=== PATIENT | female | born 1995 | race Two or more races ===

== ENCOUNTER 2024-10-05 18:58 | Emergency (ER) | payer BC, MEDICAID, SELFPAY ==
[2024-10-05 18:59] VITALS: BMI 35.7
[2024-10-05 19:52] VITALS: BP 130/83; PULSE 110; RESP 16; TEMP 37.4; O2SAT 100
--- NOTE | 2024-10-05 20:00 | PD.EDRME ---
Rapid Medical Screening Exam [facility] Arrival date/time: 10/05/24 18:58 29F with no significant PMH presents to ED with several days of gen ab pain/cramping, non-bloody diarrhea, and body aches. Chief Complaint: Flu Like Symptoms Vital signs: Vital Signs Temperature 99.3 F 10/05/24 19:52 Pulse Rate 110 H 10/05/24 19:52 Respiratory Rate 16 10/05/24 19:52 Blood Pressure 130/83 10/05/24 19:52 Pulse Oximetry (%) 100 10/05/24 19:52 Oxygen Delivery Method Room Air 10/05/24 19:52
[2024-10-05 20:34] LABS: Collection Type, Urine Clean Catch
[2024-10-05 20:44] LABS: HCG Qualitative,Urine Negative
[2024-10-05 20:46] LABS: Bacteria,Urine Rare; Bilirubin,Urine Negative (Negative); Blood,Urine Negative (Negative); Clarity,Urine Clear (Clear/Hazy); Color,Urine Colorless (Lt Yel-Yel); Glucose, Urine Negative (Negative); Ketones,Urine Negative (Negative); Leukocyte Esterase,Urine Positive (Negative); Nitrite,Urine Negative (Negative); PH,Urine 6.5 (5.0-7.0); Protein,Urine Negative (Neg - Trace); RBC,Urine 1 /hpf (0-3); Specific Gravity,Urine 1.007 (1.001-1.035); Squamous Epithelial Cell,Urine 2 /hpf (0-5); Urobilinogen,Urine Negative mg/dL (0.0-1.0); WBC,Urine 3 /hpf (0-5)
[2024-10-05 20:50] LABS: Amphetamine/Methamp Scrn,U Negative (Negative); Barbiturate Screen,Urine Negative (Negative); Benzodiazepines Screen,Urine Negative (Negative); Benzoylecgonine Screen, Ur Negative (Negative); Fentanyl Screen,Urine Negative (Negative); Opiate Screen,Urine Negative (Negative); THC Screen,Urine Negative (Negative)
[2024-10-05 21:04] LABS: Lactate (Lactic Acid) 1.1 mMol/L (0.4-2.0)
[2024-10-05 21:05] LABS: Basophils % (Auto) 0 % (0-2.5); Eosinophils # (Auto) 0.3 Thou/mm3 (0.0-0.5); Eosinophils % (Auto) 3 % (0-10); Hematocrit 41.1 % (36.0-46.0); Hemoglobin 13.7 g/dL (12.0-16.0); Immature Granulocytes % (Auto) 0 % (0-0); Immature Granulocytes Auto 0.01 Thou/mm3 (0.00-0.00); Lymphocytes # (Auto) 1.2 Thou/mm3 (1.0-4.8); Lymphocytes % (Auto) 14 % (10-50); Mean Corpuscular HGB Conc 33.3 g/dl (31.0-37.0); Mean Corpuscular Hemoglobin 28.7 pg (25.0-35.0); Mean Corpuscular Volume 86 fL (80-100); Monocytes # (Auto) 0.6 Thou/mm3 (0.0-0.8); Monocytes % (Auto) 7 % (0-12); Neutrophils # (Auto) 6.2 Thou/mm3 (1.8-7.7); Neutrophils % (Auto) 75 % (37-80); Nucleated Red Blood Cell % 0 /100 WBC (0); Platelet Count 277 Thou/mm3 (140-440); RDW Standard Deviation 40.6 fL (36.4-46.3); Red Blood Count 4.77 Miln/mm3 (4.00-5.20); White Blood Count 8.3 Thou/mm3 (3.6-11.0)
[2024-10-05 21:34] LABS: Alanine Aminotransferase 47 U/L (10-49); Albumin, Serum 5.2 gm/dL (3.5-5.0); Albumin/Globulin Ratio 1.9 (1.2-2.2); Alkaline Phosphatase 102 U/L (46-116); Anion Gap 8 (7-16); Aspartate Amino Transferase 25 U/L (0-34); BUN/Creatinine Ratio 7 Ratio (12-20); Bilirubin,Total 0.4 mg/dL (0.3-1.2); Blood Urea Nitrogen 5 mg/dL (9-23); Calcium 9.5 mg/dL (8.3-10.6); Calcium (Corrected) 9.5 mg/dL (8.5-10.1); Chloride 105 mMol/L (98-107); Creatinine (Component) 0.7 mg/dL (0.6-1.3); Globulin 2.7 gm/dL (2.3-3.5); Glucose 89 mg/dL (74-106); Lipase 32 U/L (12-53); Osmolality,Calculated 270 (275-295); Potassium 3.9 mMol/L (3.4-5.1); Procalcitonin 0.06 ng/ml (0.0-0.49); Sodium 137 mMol/L (136-145); Total Protein 7.9 gm/dL (5.7-8.2); eGFR > 60 See Note
--- NOTE | 2024-10-05 22:01 | PD.EDURI ---
Upper Respiratory Inf. RME/HPI General Chief Complaint: Flu Like Symptoms Stated Complaint: FLU SYMPTOMS x 2 DAYS Arrival date/time: 10/05/24 18:58 RME / HPI RME / HPI Narrative: 10/05/24 18:58 29F with no significant PMH presents to ED with several days of gen ab pain/cramping, non-bloody diarrhea, and body aches. ----- Dr. Fuller?s Main ED Evaluation: Related Data Home Medications ?Medication ?Instructions ?Recorded ?Confirmed omalizumab 150 mg/mL subcutaneous 300 mg subcut QMONTH 10/06/23 12/30/23 syringe (Xolair) loratadine 10 mg tablet (Claritin) 10 mg PO QDAY 12/23/23 12/30/23 vitamin-ferrous fumarate 1 tab PO QDAY 12/23/23 12/30/23 28 mg iron-folic acid 800 mcg tablet ( Vitamins with Minerals) Previous Rx's ?Medication ?Instructions ?Recorded ibuprofen 600 mg tablet 600 mg PO Q6H PRN pain #30 tabs 12/30/23 Allergies Allergy/AdvReac Type Severity Reaction Status Date / Time No Known Allergies Allergy Verified 10/05/24 19:02 Review of Systems Review of Systems Systems Reviewed: All systems reviewed, normal except as documented Narrative Review of Systems: Gen: No fever, no chills, no weight loss EYES: No discharge, no visual changes, no pain HEENT: No ear pain, no congestion, no sore throat PULM: No shortness of breath, no cough, no congestion CV: No chest pain, no dyspnea on exertion, no palpitations GI: No nausea, no vomiting, no diarrhea, no pain, no constipation : No frequency, no urgency, no dysuria Musc/skel: No joint pain, no back pain Skin: No rash Psyc: No hallucinations, no depression Heme/Lymph: No easy bleeding or bruising tendencies Neuro: No weakness, no headache Past Medical History Past Medical History NEUROLOGIC: Negative Neurological Disorders or Seizures CARDIAC: Negative Cardiac Disorders or Congestive Heart Failure RESPIRATORY: Positive Asthma; Negative Chronic Obstructive Pulmonary Disease (COPD) GASTROINTESTINAL: Positive Gastroesophageal Reflux Disease; Negative Gastrointestinal Disorders GENITOURINARY: Negative Genitourinary Disorders or Renal Disease REPRODUCTIVE: Negative Previous Pregnancies MUSCULOSKELETAL: Negative Musculoskeletal Disorders ENDOCRINE: Negative Endocrine Disorders, Diabetes Mellitus Type 1 or Diabetes Mellitus Type 2 HEMATOLOGIC: Positive Anemia; Negative Sickle Cell Disease PSYCHO/SOCIAL: Positive Depression and Anxiety OTHER HISTORY: Negative Hospitalization, Down Syndrome, Developmental Delay, Shingles, Falls, Blood Transfusions, Blood Transfusion Reaction, Anesthesia Reactions or Cancer Family History FAMILY HISTORY: Positive Family Cardiac Disorders and Family Cancer Surgical History SURGICAL: Positive Abdominal Surgery; Negative Nephrectomy, Joint Replacement, Neurologic Surgery or Mastectomy Social History SMOKING STATUS: Never smoker SUBSTANCE USE: does not use Course Quality Measures none Orders Category Date Time Status Bedside COVID-19 Antigen Test NOW Care 10/05/24 20:00 Active Bedside Influenza A&B Antigen Test NOW Care 10/05/24 20:00 Completed CBC Stat Lab 10/05/24 20:43 Completed CMP [Comprehensive Metabolic Panel] Stat Lab 10/05/24 20:43 Completed Drug Screen,Urine Stat Lab 10/05/24 20:08 Completed HCG Qualitative,Urine Stat Lab 10/05/24 20:08 Completed Lactate (Lactic Acid) Stat Lab 10/05/24 20:43 Completed Lipase Stat Lab 10/05/24 20:43 Completed Procalcitonin Stat Lab 10/05/24 20:43 Completed UA [Urinalysis] Stat Lab 10/05/24 20:08 Completed Vital Signs Vital signs: Vital Signs Temperature 99.3 F 10/05/24 19:52 Pulse Rate 110 H 10/05/24 19:52 Respiratory Rate 16 10/05/24 19:52 Blood Pressure 130/83 10/05/24 19:52 Pulse Oximetry (%) 100 10/05/24 19:52 Oxygen Delivery Method Room Air 10/05/24 19:52 Pulse ox is 100% on room air, which is normal according to my interpretation. Upper Respiratory Infection Patient data External records reviewed:: [facility] previous records (Per chart review, patient has no recent relevant ED visits.) Clinical information provided by:: patient Social determinants that could affect healthcare access:: none Patient has the following chronic illnesses:: GERD How is presenting disease/condition affected by chronic disease/condition?: uneffected by Evaluation data The following diagnostics were reviewed and interpreted by me:: lab results Lab and/or radiology exams considered but not ordered:: none Interpretation Summary: Bedside COVID and Influenza are negative, CBC is normal, CMP is normal, Lactic Acid is normal, Procalcitonin is normal, HCG is negative, UA shows positive leukocyte esterase and rare bacteria, according to my interpretation. Medications / Prescriptions Medications or Prescriptions considered but not ordered:: none Medication administrations:: see above, if any Discharge Plan Prescriptions/Referrals Prescriptions/Med Rec: No Action Xolair 150 mg/mL syringe 300 mg SUBCUT QMONTH Patient Comments: Inject 1 ml subcutaneously once a week vit-iron fum-folic ac [ Vitamin with Minerals] 28 mg iron- 800 mcg Tablet 1 tab PO QDAY loratadine [Claritin] 10 mg Tablet 10 mg PO QDAY ibuprofen 600 mg tablet 600 mg PO Q6H PRN (Reason: pain) Qty: 30 0RF Referrals: Sukhi HUANG),TED Ortez [Primary Care Provider] - In 1 week Patient/Caregiver Discharge Instructions Print Language: Spanish
--- NOTE | 2024-10-05 22:33 | EDNOTE_ITS ---
<Statement entered by Anamika Fuller MD - 10/08/24 19:24> I, Anamika Fuller MD, have reviewed the history, exam, and assessment of the patient. I have evaluated the patient independently and agree with the plan of care documented by [ ]. All diagnostic studies were reviewed and discussed. I confirm the diagnosis as documented by the Resident. I was present during the Medical Decision Making for this patient. The patient's plan of care was created between myself and the Resident and consistent with our discussion of the patient's case. ED General RME/HPI General Chief complaint: Flu Like Symptoms Stated complaint: FLU SYMPTOMS x 2 DAYS Arrival date/time: 10/05/24 18:58 RME / HPI RME / HPI narrative: A 29-year-old female with past medical history significant for GERD, ovarian cyst, and endometriosis presents in the ED on 10/05/2024 with chief complaint of diarrhea. Patient's diarrhea started at 2?3 PM on 10/04/2024. She states that it happened about 2 hours after eating a [employer] sandwich with deli ham, cheese, mayonnaise, and mustard. She describes the diarrhea as yellow, with a strong smell. She had a total of 7 diarrhea episodes on 10/04/2024. Her diarrhea was followed by abdominal pain after she ate spicy chili with meat. She describes the abdominal pain as dull, epigastric, with bilateral radiation to both sides of the abdomen with worsened pain in the b/l lower quadrants. She also experiences headaches, subjective fevers, and intermittent chills. The symptoms are decreasing in intensity especially after eating one banana all day. Today, she had 4 total yellow diarrhea episodes. Patient denies chest pain, palpitation, shortness of breath, dizziness, nausea, vomiting, or constipation. MD complaint: diarrhea + abdominal pain Onset (ago): day(s) (1) Location: abdomen Radiation: other (lower abdomen bilaterally) Severity: moderate Severity scale (1-10): 4 Quality: dull Consistency: intermittent Relieving factors: rest and other (avoiding spicy food) Exacerbating factors: eating Associated symptoms: fever/chills and headaches Treatments prior to arrival: none Related Data Home Medications ?Medication ?Instructions ?Recorded ?Confirmed omalizumab 150 mg/mL subcutaneous 300 mg subcut QMONTH 10/06/23 12/30/23 syringe (Xolair) loratadine 10 mg tablet (Claritin) 10 mg PO QDAY 12/23/23 12/30/23 vitamin-ferrous fumarate 1 tab PO QDAY 12/23/23 12/30/23 28 mg iron-folic acid 800 mcg tablet ( Vitamins with Minerals) Previous Rx's ?Medication ?Instructions ?Recorded ibuprofen 600 mg tablet 600 mg PO Q6H PRN pain #30 tabs 12/30/23 Allergies Allergy/AdvReac Type Severity Reaction Status Date / Time No Known Allergies Allergy Verified 10/05/24 19:02 Review of Systems Review of Systems Systems Reviewed: All systems reviewed, normal except as documented ED Exam Narrative Physical exam: Constitutional: well-developed, well-nourished, in no acute distress, lying in bed. HEENT: NCAT, EOMI, reactive round pupils b/l, patent nares b/l, moist mucous membranes, on room air Lung: CTAB, no wheezing, no rhonchi, mild crackles of lower lobes bilaterally Heart: Regular S1S2, no murmurs, gallops, or rubs Abdomen: Soft, non-distended, mildly tender epigastrium, hypoactive bowel sounds Extremities: No cyanosis, clubbing, no edema, 2+ dorsalis pedis pulses present b/l Neurologic: No focal sensory or motor deficits noted, AOx3, appropriate affect Skin: Warm, dry, no lesions or rashes noted Course Quality Measures none Orders Category Date Time Status Bedside COVID-19 Antigen Test NOW Care 10/05/24 20:00 Completed Bedside Influenza A&B Antigen Test NOW Care 10/05/24 20:00 Completed CBC Stat Lab 10/05/24 20:43 Completed CMP [Comprehensive Metabolic Panel] Stat Lab 10/05/24 20:43 Completed Drug Screen,Urine Stat Lab 10/05/24 20:08 Completed HCG Qualitative,Urine Stat Lab 10/05/24 20:08 Completed Lactate (Lactic Acid) Stat Lab 10/05/24 20:43 Completed Lipase Stat Lab 10/05/24 20:43 Completed Procalcitonin Stat Lab 10/05/24 20:43 Completed UA [Urinalysis] Stat Lab 10/05/24 20:08 Completed Vital Signs Vital signs: Vital Signs Temperature 99.3 F 10/05/24 19:52 Pulse Rate 110 H 10/05/24 19:52 Respiratory Rate 16 10/05/24 19:52 Blood Pressure 130/83 10/05/24 19:52 Pulse Oximetry (%) 100 10/05/24 19:52 Oxygen Delivery Method Room Air 10/05/24 19:52 [facility] Patient data External records reviewed:: [facility] previous records Clinical information provided by:: patient Social determinants that could affect healthcare access:: none Patient has the following chronic illnesses:: h/o endometriosis, ovarian cyst, and GERD How is presenting disease/condition affected by chronic disease/condition?: e xacerbated by Evaluation data The following diagnostics were reviewed and interpreted by me:: other (specify) (Vitals) Lab and/or radiology exams considered but not ordered:: N/A Interpretation Summary: Tachycardia of 110, otherwise hemodynamically stable. Medications Medications considered but not ordered:: N/A Medication administrations:: None Consultations Consultation(s) initiated? (list below): No Diagnosis Differential Diagnosis ED Complaint MDM: Diarrheal gastritis Most likely diagnosis given after review of the tests above:: Gastroenteritis Admission Indicated Admission indicated?: not indicated Explain why admission is indicated or not indicated:: Admission is not indicated as patient experienced diarrhea that has improved with decreased spicy food intake. Bowel rest has also proven to be effective in improving her symptoms. She presents with symptomatic gastroenteritis that may be improved with increased fluid intake and bland diet. Therefore admission is not indicated. Admission Request Was there a request for admission?: No Disposition Plan Disposition Plan: Discharge Discharge Attestation Discharge Attestation: The patient and all family members were given an opportunity to ask questions and understood the discharge instructions. Discharge instructions specifically effects, indications for sooner follow up or return to the emergency department, and the expected course of current diagnosis. Patient condition: Stable Medical Decision Making MDM Narrative MDM Narrative: A 29-year-old female with past medical history significant for GERD, ovarian cyst, and endometriosis presents in the ED on 10/05/2024with chief complaint of diarrhea. Patient's diarrhea started at 2?3 PM on 10/04/2024. She states that it happened about 2 hours after eating a [employer] sandwich with deli ham, cheese, mayonnaise, and mustard. Her diarrhea was followed by abdominal pain after she ate spicy chili with meat. Patient's as dull epigastric/abdominal pain with diarrhea is indicative of possible gastroenteritis. The diarrhea is non-bloody ruling out any possible C. jejuni, shigella, hemorrhagic e-coli or salmonella. Her yellow diarrhea points to possible C. diff. but patient does not have any hx of recent antibiotic use or working in healthcare, hence no known predisposing factors to C. difficile. Yet, she states that her diarrhea is smelly but denies any recent camping or unsanitary water access. Hence, patient is recommended to continue a [place]/BRAT diet and fluid hydration. No indication of active infections because denies any present fever/chills at this moment and vitals were stable. Differential Diagnosis Differential Diagnosis: Diarrheal gastritis Medical Records Medical records reviewed: Yes I reviewed the patient's medical records. Lab Data 10/05/24 20:43 10/05/24 20:43 Labs: Lab Results 10/05/24 10/05/24 Range/Units 20:08 20:43 WBC 8.3 (3.6-11.0) Thou/mm3 RBC 4.77 (4.00-5.20) Miln/mm3 Hgb 13.7 (12.0-16.0) g/dL Hct 41.1 (36.0-46.0) % MCV 86 (80-100) fL MCH 28.7 (25.0-35.0) pg MCHC 33.3 (31.0-37.0) g/dl RDW Std Deviation 40.6 (36.4-46.3) fL Plt Count 277 (140-440) Thou/mm3 Neut % (Auto) 75 (37-80) % Lymph % (Auto) 14 (10-50) % [place] % (Auto) 7 (0-12) % Eos % (Auto) 3 (0-10) % Baso % (Auto) 0 (0-2.5) % Neut # (Auto) 6.2 (1.8-7.7) Thou/mm3 Lymph # (Auto) 1.2 (1.0-4.8) Thou/mm3 [place] # (Auto) 0.6 (0.0-0.8) Thou/mm3 Eos # (Auto) 0.3 (0.0-0.5) Thou/mm3 Baso # (Auto) 0.0 (0.0-0.2) Thou/mm3 Immature Gran # (Auto) 0.01 H (0.00-0.00) Thou/mm3 Absolute Nucleated RBC 0.00 (0.00-0.00) Thou/mm3 Immature Gran % 0 (0-0) % Nucleated RBC % 0 (0) /100 WBC Sodium 137 (136-145) mMol/L Potassium 3.9 (3.4-5.1) mMol/L Chloride 105 (98-107) mMol/L Carbon Dioxide 24.0 (20.0-31.0) mMol/L Anion Gap 8 (7-16) BUN 5 L (9-23) mg/dL Creatinine 0.7 (0.6-1.3) mg/dL Estim Creat Clear Calc 137.0 (>60) mL/min eGFR > 60 (60 - ) See Note BUN/Creatinine Ratio 7 L (12-20) Ratio Glucose 89 (74-106) mg/dL Calculated Osmolality 270 L (275-295) Lactic Acid 1.1 (0.4-2.0) mMol/L Calcium 9.5 (8.3-10.6) mg/dL Corrected Calcium 9.5 (8.5-10.1) mg/dL Total Bilirubin 0.4 (0.3-1.2) mg/dL AST 25 (0-34) U/L ALT 47 (10-49) U/L Alkaline Phosphatase 102 (46-116) U/L Total Protein 7.9 (5.7-8.2) gm/dL Albumin 5.2 H (3.5-5.0) gm/dL Globulin 2.7 (2.3-3.5) gm/dL Albumin/Globulin Ratio 1.9 (1.2-2.2) Lipase 32 (12-53) U/L Procalcitonin 0.06 (0.0-0.49) ng/ml Ur Collection Type Clean Catch Urine Color Colorless A (Lt Yel-Yel) Urine Clarity Clear (Clear/Hazy) Urine pH 6.5 (5.0-7.0) Ur Specific [place] 1.007 (1.001-1.035) Urine Protein Negative (Neg - Trace) Urine Glucose (UA) Negative (Negative) Urine Ketones Negative (Negative) Urine Blood Negative (Negative) Urine Nitrite Negative (Negative) Urine Bilirubin Negative (Negative) Urine Urobilinogen (Auto) Negative (0.0-1.0) mg/dL Ur Leukocyte Esterase Positive (Negative) Urine RBC 1 (0-3) /hpf Urine WBC 3 (0-5) /hpf Ur Squamous Epith Cells 2 (0-5) /hpf Urine Bacteria Rare (None) Urine HCG, Qual Negative Urine Opiates Screen Negative (Negative) Urine Fentanyl Screen Negative (Negative) Ur Barbiturates Screen Negative (Negative) U Amphetamin/Meth Scrn Negative (Negative) U Benzodiazepines Scrn Negative (Negative) U Cocaine Metab Screen Negative (Negative) U Marijuana (THC) Screen Negative (Negative) Discharge Plan Plan Patient Disposition: HOME (Self Care) Patient condition on transfer: Stable Health Concerns: Recommend to follow-up with PCP in 7 days. [place] diet recommended with fluid hydration. Recommend tylenol for pain as needed not to exceed 2,000mg daily. If symptoms worsen, please return to the ED. Prescriptions/Referrals Prescriptions/Med Rec: No Action Xolair 150 mg/mL syringe 300 mg SUBCUT QMONTH Patient Comments: Inject 1 ml subcutaneously once a week vit-iron fum-folic ac [ Vitamin with Minerals] 28 mg iron- 800 mcg Tablet 1 tab PO QDAY loratadine [Claritin] 10 mg Tablet 10 mg PO QDAY ibuprofen 600 mg tablet 600 mg PO Q6H PRN (Reason: pain) Qty: 30 0RF Referrals: Sukhi HUANG)Neelima FNP [Primary Care Provider] - In 1 week Problem List Clinical Impression: Gastroenteritis, Diarrhea, Gastritis Patient/Caregiver Discharge Instructions Print Language: Cook Islander Stand Alone Forms: Priti Award Info., Patient Portal Info Letter
[2024-10-05 23:11] VITALS: BP 125/67; PULSE 78; RESP 19; TEMP 36.6; O2SAT 99
== END 2024-10-05 23:12 | disposition home or self-care (01) ==
PROVIDERS: Physician Assistant; Emergency Provider Emergency Medicine; PCP Nurse Practitioner Primary Care
DX: K29.70 Gastritis, unspecified, without bleeding (principal); K52.9 Noninfective gastroenteritis and colitis, unspecified
CPT/HCPCS: 36415; 80053; 80307; 81001; 81025; 83605; 83690; 84145; 85025; 87400; 87811; 99283

== ENCOUNTER 2025-03-08 06:20 | Day surgery (SDC) | payer BC, MEDICAID, SELFPAY ==
--- NOTE | 2025-03-04 15:20 | ESHP_ITS ---
RE: DENISE GREGG : 1995 DATE OF ADMISSION: 03/08/2025 HISTORY OF PRESENT ILLNESS: This is a 29-year-old 2, para 1-0-0-1 with miscarriage at 6 weeks and 6 days who presents for suction dilatation and curettage. The patient has had serial ultrasounds confirming miscarriage and she elects to undergo D and C. ALLERGIES: NO KNOWN DRUG ALLERGIES. MEDICATIONS: multivitamin 1 p.o. daily. PAST MEDICAL HISTORY: Asthma, anxiety, iron deficiency anemia, seasonal allergies, sciatica, borderline systolic hypertension, and gallstones. FAMILY HISTORY: Mom has breast cancer. Maternal grandfather has colon cancer. PAST SURGICAL HISTORY: Suction dilatation and curettage in 12/2023 for retained products of conception. REVIEW OF SYSTEMS: She denies any headache, change in vision or right upper quadrant pain. She denies any chest pain, palpitations, shortness of breath, or lower extremity pain. PHYSICAL EXAMINATION: VITAL SIGNS: Blood pressure is 138/72, heart rate 88, respirations 18, and temperature is 98.6. HEENT: Oropharynx and sclerae are clear. LUNGS: Clear to auscultation bilaterally. HEART: Regular rate and rhythm. ABDOMEN: Nontender. SKIN: No gross rashes or lesions. NEUROLOGIC: No focal deficits. EXTREMITIES: Nontender. No edema. ASSESSMENT: Missed at 6 weeks gestation. PLAN: Suction dilatation and curettage. Informed consent was obtained. The patient was made aware of the risks, complications, alternatives, and benefits of the proposed procedure and she agrees. DT: 14:14:14 TT: 15:18:00 Ref: [id number] - TID: [id number] MTD
[2025-03-07 09:05] VITALS: BMI 36.1
[2025-03-07 10:04] LABS: Basophils # (Auto) 0.1 Thou/mm3 (0.0-0.2); Basophils % (Auto) 1 % (0-2.5); Eosinophils # (Auto) 0.6 Thou/mm3 (0.0-0.5); Eosinophils % (Auto) 8 % (0-10); Hematocrit 37.2 % (36.0-46.0); Hemoglobin 12.5 g/dL (12.0-16.0); Immature Granulocytes % (Auto) 0 % (0-0); Immature Granulocytes Auto 0.02 Thou/mm3 (0.00-0.00); Lymphocytes # (Auto) 1.8 Thou/mm3 (1.0-4.8); Lymphocytes % (Auto) 23 % (10-50); Mean Corpuscular HGB Conc 33.6 g/dl (31.0-37.0); Mean Corpuscular Volume 80 fL (80-100); Monocytes # (Auto) 0.5 Thou/mm3 (0.0-0.8); Monocytes % (Auto) 7 % (0-12); Neutrophils # (Auto) 4.5 Thou/mm3 (1.8-7.7); Neutrophils % (Auto) 60 % (37-80); Nucleated Red Blood Cell % 0 /100 WBC (0); Platelet Count 314 Thou/mm3 (140-440); Red Blood Count 4.63 Miln/mm3 (4.00-5.20); White Blood Count 7.5 Thou/mm3 (3.6-11.0)
[2025-03-07 10:15] LABS: Partial Thromboplastin Time 30.2 Seconds (22.0-36.0); Prothrombin Time 11.1 Seconds (9.0-12.2)
[2025-03-07 11:00] LABS: Alanine Aminotransferase 25 U/L (10-49); Albumin, Serum 4.6 gm/dL (3.5-5.0); Albumin/Globulin Ratio 1.7 (1.2-2.2); Alkaline Phosphatase 66 U/L (46-116); Anion Gap 10 (7-16); Aspartate Amino Transferase 20 U/L (0-34); BUN/Creatinine Ratio 10 Ratio (12-20); Bilirubin,Total 0.5 mg/dL (0.3-1.2); Blood Urea Nitrogen 6 mg/dL (9-23); Carbon Dioxide 26.3 mMol/L (20.0-31.0); Chloride 106 mMol/L (98-107); Creatinine (Component) 0.6 mg/dL (0.6-1.3); Estimated Creatinine Clearance 160.8 mL/min (>60); Globulin 2.7 gm/dL (2.3-3.5); Glucose 92 mg/dL (74-106); Osmolality,Calculated 280 (275-295); Potassium 3.8 mMol/L (3.4-5.1); Sodium 142 mMol/L (136-145); Total Protein 7.3 gm/dL (5.7-8.2); eGFR > 60 See Note
[2025-03-07 11:04] LABS: Beta HCG,Quantitative 7795 mIU/mL (<5.0)
--- NOTE | 2025-03-07 14:33 | SUR.PREOP ---
Pt notified to come in at 0630 tomorrow for surgery.
[2025-03-08] VITALS (10 sets, daily range): BP systolic 117–133; BP diastolic 63–82; PULSE 72–87; RESP 12–20; TEMP 36.1–36.6; O2SAT 95–98; BMI 33.1
--- NOTE | 2025-03-08 07:55 | CHAP ---
Visited briefly with patient giving encouragement and prayer.
--- NOTE | 2025-03-08 09:14 | SUR.PHASEI ---
0914: Pt. wakes to name then drifts back to sleep, vitals stable, breathing unlabored, no complaint of pain or nausea, peripad in place with scant amount of blood, report received from Safia NIX and Kulwant SIDDIQUI.
--- NOTE | 2025-03-08 09:14 | PD.GYNPROC ---
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 And the patient made aware the risk complications alternatives and benefits of the proposed procedure. She was taken to the operating room where she underwent induction of general anesthesia. She was placed in dorsolithotomy position. She was prepped and draped in usual sterile fashion. A timeout was performed. The patient underwent exam under anesthesia. A bivalve speculum was placed in the vagina. A single-tooth tenaculum was used to grasp the anterior lip of the cervix. The cervix was dilated to accommodate the 10 mm suction curette. The suction curette was introduced into the uterine cavity and all 4 quadrants were gently curetted and products of conception were obtained and sent to pathology. The uterine cavity was gently curetted with a sharp curette and no additional products of conception were obtained. The uterine cavity was gently curetted with the suction curette and no additional products conception were obtained. The fundus was firm with no bleeding at the end of the procedure with the administration of Pitocin and the intravenous fluids. All instruments were removed from the vagina. She was reversed from general anesthesia in the supine position and transferred to the cover room in stable condition. I discussed with her Sister Harmony the nature of her condition, the intraoperative findings and the expectation for recovery. All questions answered. Specimen: other (Products of conception) Estimated blood loss (ml): 200 Findings: Moderate amount of products of conception in the uterine cavity. Cervix long and closed. Normal shape and contour of uterine cavity. Complications: none Surgical staff Kulwant Silverman CRNA Operation Date: 03/08/25 08:45 <No data on this case meets the specified criteria> Diagnosis Discharge Diagnosis (1) Missed : Status: Acute Problem List Completed Was Problem List Reviewed/Reconciled?: Yes
[2025-03-08] MEDS: fentaNYL CIT INJ 50 mCg/ML AMP 2ML IV ×2 (09:25→09:36)
[2025-03-08] MEDS: ACETAMINOPHEN IVPB 1,000 MG/100 ML VIAL 250 MG IV (09:25)
[2025-03-08] MEDS: ONDANSETRON INJ 2 MG/ML INJ 2 ML 4 MG IV (10:30)
--- NOTE | 2025-03-08 10:46 | SUR.PHASEII ---
1046: Pt. AAOx4, vitals stable, breathing unlabored, no complaint of pain or nausea, peripad in place with minimal amount of blood, pt. tolerated bites of ice chips well, pt. ambulated to wheelchair with steady gait and no assist, no complications. Gave discharge instructions to the pt. and her ride, both verbalized understanding and had no further questions. Pt. left with all personal belongings.
== END 2025-03-08 10:46 | disposition home or self-care (01) ==
PROVIDERS: PCP Nurse Practitioner Primary Care; Referring Provider Specialist; Visit Provider Specialist
PROC: (CPT 58120; principal; 2025-03-08 08:30)
DX: O02.1 Missed abortion (principal)
CPT/HCPCS: 59820; 36415; 80053; 84702; 85025; 85610; 85730; 86850; 86900; 86901; A4217; J0131; J0690; J1100; J1885; J2250; J2405; J2590; J2704; J3010; J3490

== ENCOUNTER 2025-05-24 19:49 | Emergency (ER) | payer BC, MEDICAID, SELFPAY ==
[2025-05-24 19:51] VITALS: BMI 35.9
[2025-05-24 20:00] VITALS: BP 110/66; PULSE 70; RESP 18; TEMP 36.9; O2SAT 99
--- NOTE | 2025-05-24 20:13 | EDNOTE_ITS ---
Nausea/Vomit./Diarrhea-RME/HPI General Chief complaint: Nausea/Vomiting/Diarrhea Stated complaint: VOMITING Time Seen by Provider: 05/24/25 20:02 Arrival date/time: 05/24/25 19:49 29F with no significant PMH presents to ED with 2 days of N/V and some non- bloody diarrhea. Patient saw PCP, who prescribed Zofran (1st day of taking it). Zofran helped, but not enough. Patient is also about 7 weeks with twins. Patient has had intermittent bleeding and pelvic cramping, but is working with [facility] with this. Patient had US last week. Patient is not concerned about the OBGN concerns and doesn't want US as she's not here for that. Patient is more concerned that she is dehydrated. Patient denies dizziness and AMS, just fatigue. Limitations: no limitations Related Data Home Medications ?Medication ?Instructions ?Recorded ?Confirmed omalizumab 150 mg/mL subcutaneous 300 mg subcut QMONTH 10/06/23 03/07/25 syringe (Xolair) vitamin-ferrous fumarate 1 tab PO QDAY 03/07/25 28 mg iron-folic acid 800 mcg tablet ( Vitamins with Minerals) Previous Rx's ?Medication ?Instructions ?Recorded metoclopramide HCl 5 mg tablet 5 mg PO BID PRN nausea and 05/24/25 (Reglan) vomiting #14 tabs Allergies Allergy/AdvReac Type Severity Reaction Status Date / Time hydrocodone (From [place]) Allergy Rash Verified 05/24/25 19:58 Review of Systems Review of Systems Systems Reviewed: All systems reviewed, normal except as documented Constitutional Constitutional: Reports system reviewed and no additional complaints, except as documented, Reports as per HPI, Reports fatigue, Denies fever(s) and Denies headache(s) ENT Ears, Nose, Mouth, and Throat: Denies disequilibrium and Denies headache(s) Cardiovascular Cardiovascular: Reports system reviewed and no additional complaints, except as documented, Denies chest pain and Denies dyspnea Respiratory Respiratory: Reports system reviewed and no additional complaints, except as documented, Denies cough and Denies dyspnea Gastrointestinal Gastrointestinal: Reports system reviewed and no additional complaints, except as documented, Reports as per HPI, Reports abdominal pain, Reports diarrhea, Reports nausea and Reports vomiting Neurologic Neurologic: Reports system reviewed and no additional complaints, except as documented, Denies confusion, Denies disequilibrium and Denies headache(s) Psychiatric Psychiatric: Denies confusion Endocrine Endocrine: Reports fatigue Past Medical History Past Medical History NEUROLOGIC: Negative Neurological Disorders or Seizures CARDIAC: Negative Cardiac Disorders or Congestive Heart Failure RESPIRATORY: Positive Bronchitis; Negative Chronic Obstructive Pulmonary Disease (COPD) or Asthma GASTROINTESTINAL: Positive Gastrointestinal Disorders and Obesity; Negative Gastroesophageal Reflux Disease GENITOURINARY: Negative Genitourinary Disorders or Renal Disease REPRODUCTIVE: Positive Previous Pregnancies (this is second , no heart tones) MUSCULOSKELETAL: Negative Musculoskeletal Disorders ENDOCRINE: Negative Endocrine Disorders, Diabetes Mellitus Type 1 or Diabetes Mellitus Type 2 HEMATOLOGIC: Positive Blood Disorders and Anemia; Negative Sickle Cell Disease PSYCHO/SOCIAL: Positive Depression and Anxiety OTHER HISTORY: Negative Hospitalization, Down Syndrome, Developmental Delay, Shingles, Falls, Blood Transfusions, Blood Transfusion Reaction, Anesthesia Reactions or Cancer Family History FAMILY HISTORY: Positive Family Cardiac Disorders and Family Surgery; Negative Family Psychiatric Problems, Family Respiratory Disorders, Family Gastr ointestinal Problems, Family Cancer or Family Anesthesia Reaction Surgical History SURGICAL: Positive Abdominal Surgery; Negative Nephrectomy, Joint Replacement, Neurologic Surgery or Mastectomy Social History SMOKING STATUS: Never smoker SUBSTANCE USE: does not use ED Exam General Limitations: Present no limitations General appearance: Present alert and in no apparent distress Head Head exam: Present atraumatic Eye Eye exam: Present normal appearance, PERRL and EOMI ENT ENT exam: Present normal exam, normal oropharynx and mucous membranes moist Neck Neck exam: Present normal inspection, full ROM and trachea midline Chest Chest inspection: Present normal inspection and symmetric chest wall rise Respiratory Respiratory exam: Present normal lung sounds bilaterally Cardiovascular Cardiovascular exam: Present regular rate, normal rhythm and normal heart sounds Abdominal Exam Abdominal exam: Present soft and normal bowel sounds Extremities Exam Extremities exam: Present normal inspection and full ROM Back Exam Back exam: Present normal inspection and full ROM Neurological Exam Neurological exam: Present alert, oriented X3 and CN II-XII intact Psychiatric Psychiatric exam: Present normal affect and normal mood Skin Skin exam: Present warm, dry, intact and normal color Course Quality Measures none Orders Category Date Time Status CBC Stat Lab 05/24/25 20:17 Completed CMP [Comprehensive Metabolic Panel] Stat Lab 05/24/25 20:17 Completed Magnesium Stat Lab 05/24/25 20:17 Completed Urinalysis, C/S if Indicated Stat Lab 05/24/25 21:01 Completed Metoclopramide [Reglan] Med 05/24/25 20:11 Discontinued 10 mg PO X1 ONE Vital Signs Vital signs: Vital Signs Temperature 98.5 F 05/24/25 20:00 Pulse Rate 70 05/24/25 20:00 Respiratory Rate 18 05/24/25 20:00 Blood Pressure 110/66 05/24/25 20:00 Pulse Oximetry (%) 99 05/24/25 20:00 Oxygen Delivery Method Room Air 05/24/25 20:00 O2 at 99% on RA and WNLs Nausea/Vomiting/Diarrhea MDM Narrative MDM Narrative:: 29F with no significant PMH presents to ED with 2 days of N/V and some non- bloody diarrhea. Patient saw PCP, who prescribed Zofran (1st day of taking it). Zofran helped, but not enough. Patient is also about 7 weeks with twins. Patient has had intermittent bleeding and pelvic cramping, but is working with [facility] with this. Patient had US last week. Patient is not concerned about the OBGN concerns and doesn't want US as she's not here for that. Patient is more concerned that she is dehydrated. Patient denies dizziness and AMS, just fatigue. Physical exam reveals well-appearing female. Patient is afebrile, calm, and alert. No leukocytosis or anemia. CMP unremarkable. Mag normal. UA no gross dehydration or UTI. PO challenge passed. Patient data External records reviewed:: [facility] previous records Clinical information provided by:: patient Social determinants that could affect healthcare access:: none Patient has the following chronic illnesses:: none How is presenting disease/condition affected by chronic disease/condition?: no chronic disease Evaluation data The following diagnostics were reviewed and interpreted by me:: lab results Lab and/or radiology exams considered but not ordered:: ordered Interpretation Summary: above Medications / Prescriptions Medications / Prescriptions considered but not ordered:: ordered Medication administrations:: Medication Administration History Discontinued Medications Metoclopramide HCl (Metoclopramide 5 Mg Tablet) 10 mg PO X1 ONE Stop: 05/24/25 20:12 Last Admin: 05/24/25 20:25 Dose: 10 mg Documented By: OA above Consultations Consultation(s) initiated? (list below): No Diagnosis Nausea Differential Diagnosis: traveler's diarrhea, food poisoning, gastroenteritis, clostridium difficile infection, drug-induced nausea and vomiting and dehydration Most likely diagnosis given after review of the tests above:: gastroenteritis Admission Indicated Admission indicated?: not indicated Admission Request Was there a request for admission?: No Disposition Plan Disposition Plan: Discharge Discharge Attestation Discharge Attestation: The patient and all family members were given an opportunity to ask questions and understood the discharge instructions. Discharge instructions specifically effects, indications for sooner follow up or return to the emergency department, and the expected course of current diagnosis. Patient condition: Stable Discharge Plan Plan Patient Disposition: HOME (Self Care) Discharge Disposition comment: Stable Prescriptions/Referrals Prescriptions/Med Rec: New metoclopramide HCl [Reglan] 5 mg tablet 5 mg PO BID PRN (Reason: nausea and vomiting) Qty: 14 0RF No Action Xolair 150 mg/mL syringe 300 mg SUBCUT QMONTH Patient Comments: Inject 1 ml subcutaneously once a week vit-iron fum-folic ac [ Vitamin with Minerals] 28 mg iron- 800 mcg Tablet 1 tab PO QDAY Referrals: [facility] ([facility], [facility])Neelima PA-C [Primary Care Provider] - In 1 week Problem List Clinical Impression: Gastroenteritis Patient/Caregiver Discharge Instructions Education Materials: ED Gastroenteritis, Viral (Adult) Additional Instructions: Please follow-up with PCP within 24-48 hours and return immediately if symptoms worsen. Can stop Zofran and take Reglan. Print Language: Iranian Stand Alone Forms: Patient Portal Info Letter BASHIR/TED Supervising Physician BASHIR/TED Supervising Physician: Dr. Stubbs
[2025-05-24] MEDS: METOCLOPRAMIDE 5 MG TABLET 10 MG PO (20:25)
[2025-05-24 20:33] LABS: Basophils # (Auto) 0.1 Thou/mm3 (0.0-0.2); Basophils % (Auto) 1 % (0-2.5); Eosinophils # (Auto) 0.2 Thou/mm3 (0.0-0.5); Eosinophils % (Auto) 2 % (0-10); Hematocrit 38.7 % (36.0-46.0); Hemoglobin 12.8 g/dL (12.0-16.0); Immature Granulocytes Auto 0.02 Thou/mm3 (0.00-0.00); Lymphocytes # (Auto) 2.4 Thou/mm3 (1.0-4.8); Lymphocytes % (Auto) 24 % (10-50); Mean Corpuscular HGB Conc 33.1 g/dl (31.0-37.0); Mean Corpuscular Hemoglobin 27.8 pg (25.0-35.0); Mean Corpuscular Volume 84 fL (80-100); Monocytes # (Auto) 0.8 Thou/mm3 (0.0-0.8); Monocytes % (Auto) 8 % (0-12); Neutrophils # (Auto) 6.6 Thou/mm3 (1.8-7.7); Neutrophils % (Auto) 65 % (37-80); Nucleated Red Blood Cell # 0.00 Thou/mm3 (0.00-0.00); Nucleated Red Blood Cell % 0 /100 WBC (0); Platelet Count 302 Thou/mm3 (140-440); RDW Standard Deviation 47.1 fL (36.4-46.3); Red Blood Count 4.61 Miln/mm3 (4.00-5.20); White Blood Count 10.0 Thou/mm3 (3.6-11.0)
[2025-05-24 20:52] LABS: Alanine Aminotransferase 21 U/L (10-49); Albumin, Serum 4.5 gm/dL (3.5-5.0); Albumin/Globulin Ratio 1.6 (1.2-2.2); Alkaline Phosphatase 65 U/L (46-116); Anion Gap 9 (7-16); Aspartate Amino Transferase 15 U/L (0-34); BUN/Creatinine Ratio 8 Ratio (12-20); Bilirubin,Total 0.3 mg/dL (0.3-1.2); Blood Urea Nitrogen < 5 mg/dL (9-23); Calcium 10.0 mg/dL (8.3-10.6); Calcium (Corrected) 10.0 mg/dL (8.5-10.1); Carbon Dioxide 23.8 mMol/L (20.0-31.0); Chloride 107 mMol/L (98-107); Creatinine (Component) 0.6 mg/dL (0.6-1.3); Estimated Creatinine Clearance 160.3 mL/min (>60); Globulin 2.8 gm/dL (2.3-3.5); Glucose 85 mg/dL (74-106); Magnesium 1.7 mg/dL (1.6-2.6); Osmolality,Calculated 275 (275-295); Potassium 3.9 mMol/L (3.4-5.1); Sodium 140 mMol/L (136-145); Total Protein 7.3 gm/dL (5.7-8.2); eGFR > 60 See Note
[2025-05-24 21:08] LABS: Collection Type, Urine Clean Catch
[2025-05-24 21:16] LABS: Bacteria,Urine Rare; Bilirubin,Urine Negative (Negative); Blood,Urine 1+ (Negative); Clarity,Urine Clear (Clear/Hazy); Color,Urine Colorless (Lt Yel-Yel); Culture Indicated,Urine Not Indicated; Glucose, Urine Negative (Negative); Ketones,Urine Negative (Negative); Leukocyte Esterase,Urine Positive (Negative); Nitrite,Urine Negative (Negative); PH,Urine 6.5 (5.0-7.0); Protein,Urine Negative (Neg - Trace); RBC,Urine 1 /hpf (0-3); Specific Gravity,Urine 1.006 (1.001-1.035); Squamous Epithelial Cell,Urine 3 /hpf (0-5); Urobilinogen,Urine Negative mg/dL (0.0-1.0); WBC,Urine 10 /hpf (0-5)
== END 2025-05-24 22:11 | disposition home or self-care (01) ==
PROVIDERS: Physician Assistant; Emergency Provider Emergency Medicine; PCP Physician Assistant
DX: O99.611 Diseases of the digestive system complicating pregnancy, first trimester (principal); K52.9 Noninfective gastroenteritis and colitis, unspecified; Z3A.01 Less than 8 weeks gestation of pregnancy
CPT/HCPCS: 36415; 80053; 81001; 83735; 85025; 99283; A9270

== ENCOUNTER 2025-10-21 09:32 | Observation (INO) | payer BC, MEDICAID, SELFPAY ==
[2025-10-21] VITALS (9 sets, daily range): BP systolic 120; BP diastolic 57; PULSE 91–108; RESP 18–99; TEMP 36.8; O2SAT 96–98; BMI 38.7
[2025-10-21 10:29] LABS: Collection Type, Urine Clean Catch
[2025-10-21 10:46] LABS: Bacteria,Urine Rare; Bilirubin,Urine Negative (Negative); Blood,Urine Negative (Negative); Clarity,Urine Clear (Clear/Hazy); Color,Urine Lt-Yellow (Lt Yel-Yel); Culture Indicated,Urine Not Indicated; Glucose, Urine Negative (Negative); Ketones,Urine Negative (Negative); Leukocyte Esterase,Urine Positive (Negative); Nitrite,Urine Negative (Negative); PH,Urine 6.5 (5.0-7.0); Protein,Urine Negative (Neg - Trace); RBC,Urine 1 /hpf (0-3); Specific Gravity,Urine 1.011 (1.001-1.035); Squamous Epithelial Cell,Urine 3 /hpf (0-5); Urobilinogen,Urine Negative mg/dL (0.0-1.0); WBC,Urine 1 /hpf (0-5)
[2025-10-21 11:00] LABS: FFN Specimen Descripton Clr Colrless Aqueous; Fetal Fibronectin Negative (Negative)
== END 2025-10-21 11:24 | disposition home or self-care (01) ==
PROVIDERS: Admitting Provider Specialist; Visit Provider Specialist
DX: O47.03 False labor before 37 completed weeks of gestation, third trimester (principal); Z3A.28 28 weeks gestation of pregnancy
CPT/HCPCS: 59025; 59899; 81001; 82731